=== PATIENT | female | born 1940 | race African-American/Black ===

== ENCOUNTER → 2016-11-21 | Outpatient (CLI) | payer MEDICARE, OTHER ==
[~2016-11-21] MED LIST: BENAPOW2 XX; ESTR.3 PO; PROV2.5T OR; SYNT25TA OR
[2016-11-21 11:42] LABS: AUTOMATED NEUTROPHIL # 2.9 TH/MM3 (1.8-7.7); BASOPHIL % 0.7 % (0.0-2.0); EOSINOPHIL # 0.3 TH/MM3 (0-0.4); EOSINOPHIL % 4.7 % (0.0-4.0); HEMATOCRIT 38.9 % (35.0-46.0); HEMO FLAGS DIFF FINAL; LYMPH % 36.8 % (9.0-44.0); LYMPHOCYTE # 2.1 TH/MM3 (1.0-4.8); MEAN CELL VOLUME 88.2 FL (80.0-100.0); MEAN CORPUSCULAR HEMOGLOBIN 29.6 PG (27.0-34.0); MEAN CORPUSCULAR HGB CONC 33.6 % (32.0-36.0); MONO % 6.7 % (0.0-8.0); NEUT % 51.1 % (16.0-70.0); PLATELET COUNT 100 TH/MM3 (150-450); RED BLOOD COUNT 4.41 MIL/MM3 (4.00-5.30); RED CELL DISTRIBUTION WIDTH 14.2 % (11.6-17.2); WHITE BLOOD COUNT 5.7 TH/MM3 (4.0-11.0)
[2016-11-21 11:59] LABS: ALKALINE PHOSPHATASE 38 U/L (45-117); ALT (GPT) 16 U/L (10-53); ANION GAP 8 MEQ/L (5-15); AST (GOT) 17 U/L (15-37); BICARBONATE 26.6 MEQ/L (21.0-32.0); BLOOD UREA NITROGEN 16 MG/DL (7-18); CHLORIDE 107 MEQ/L (98-107); FREE T4 1.25 NG/DL (0.76-1.46); GLOMERULAR FILTRATION RATE 78 ML/MIN (>89); GLUCOSE,FASTING 88 MG/DL (74-99); HDL CHOLESTEROL 95.1 MG/DL (40.0-60.0); INDIRECT BILIRUBIN 0.6 MG/DL (0.0-0.8); LDL CHOLESTEROL 101 MG/DL (0-99); POTASSIUM 4.4 MEQ/L (3.5-5.1); SODIUM (NA) 142 MEQ/L (136-145); TOTAL BILIRUBIN ADULT 0.8 MG/DL (0.2-1.0)
[2016-11-21 16:00] LABS: HEMOGLOBIN A1a 1.1 %; HEMOGLOBIN A1b 0.8 %; HEMOGLOBIN Ao 85.8 %; HEMOGLOBIN F 0.8 %; HEMOGLOBIN LA1C 1.8 %; HEMOGLOBIN P3 3.7 %
== END ==
LOC: CLAB 11:09
PROVIDERS: ATTEND Internal Medicine Cardiovascular Disease
DX: E78.2 Mixed hyperlipidemia (principal); I65.23 Occlusion and stenosis of bilateral carotid arteries; I36.2 Nonrheumatic tricuspid (valve) stenosis with insufficiency; R73.01 Impaired fasting glucose; Z79.899 Other long term (current) drug therapy
CPT/HCPCS: 36415; 80048; 80061; 80076; 83036; 84439; 84443; 85025

== ENCOUNTER 2017-02-27 09:07 | Emergency (ER) | payer MEDICARE, OTHER ==
[2017-02-27 09:11] VITALS: BP 177/77; PULSE 82; RESP 15; TEMP 98.1; O2SAT 99
[2017-02-27] MEDS ORDERED: ESTR.3 PO (09:36)
[2017-02-27] MEDS ORDERED: LEVO.05 PO (09:36)
[2017-02-27] MEDS ORDERED: MEDR2.5 PO (09:36)
[2017-02-27] MEDS ORDERED: TELM20 PO (09:36)
[2017-02-27] MEDS ORDERED: diphenhydrAMINE HCL 25 MG CAP PO ONE (10:30)
[2017-02-27] MEDS ORDERED: predniSONE 20 MG TAB PO ONE (10:30)
[2017-02-27] MEDS ORDERED: PRED-503 PO (10:33)
[2017-02-27] MEDS ORDERED: DIPH25CA PO (10:33)
--- NOTE | 2017-02-27 10:33 | PD ---
HPI Chief Complaint: Bite or Sting Time Seen by Provider: 10:12 Travel History International Travel<30 days: No Contact w/Intl Traveler<30days: No Traveled to known affect area: No History of Present Illness HPI The patient is a 76-year-old [place] female who presents emergency department for rash to the right forearm. The patient states she developed a rash of her forearms several months ago while she was cleaning property up and the pain handle of [place]. The patient states the rash was somewhat pruritic, lasted for 2 weeks and then resolved. The patient then developed a rash and/or bite to the posterior aspect of the right elbow which last for several days, was somewhat pruritic and then healed. She now complains of redness and swelling over the proximal right forearm which is warm to the touch and pruritic. She denies any ration of pain proximal to the right elbow. She does note she recently had a similar rash to left upper extremity, is unsure if she' s being bit by insects or is allergic to some chemical. She denies any current systemic symptoms and has an appointment next Sunday with a senior bioinformatics specialist because her practitioners out of town. PFSH Past Medical History Blood Disorders: No Cardiovascular Problems: No Diminished Hearing: No Gastrointestinal Disorders: Yes (HX GERD,ESOPHAGEAL STRICTURES, COLON POLYPS) GERD: Yes Musculoskeletal: No Neurologic: No Psychiatric: No Respiratory: Yes (SARCODOSIS) ?: Not Past Surgical History Thoracic Surgery: Yes ("lung check for sarcoidosis") Other Surgery: Yes (polyp removal, urethral dilation, ) Social History Alcohol Use: Yes (rare) Tobacco Use: No Substance Use: No Allergies-Medications (Allergen,Severity, Reaction): Coded Allergies: Valium (Verified Allergy, Severe, 02/27/17) Uncoded Allergies: innovar (Adverse Reaction, Severe, 02/27/17) hyper Reported Meds & Prescriptions Reported Meds & Active Scripts Active Reported Micardis (Telmisartan) 20 Mg Tab 20 Mg PO DAILY Synthroid (Levothyroxine Sodium) 50 Mcg Tab 50 Mcg PO DAILY Premarin (Estrogens Conjugated) 0.3 Mg Tab 0.3 Mg PO DAILY Provera (Medroxyprogesterone Acetate) 2.5 Mg Tab 2.5 Mg PO DAILY Start day 21 Review of Systems General / Constitutional: No: Fever, Chills Musculoskeletal: No: Myalgias, Arthralgias Skin: Positive Rash, Positive Itching Neurologic: No: Paresthesia, Sensory Disturbance Physical Exam Narrative GENERAL: Awake, alert, very pleasant 76-year-old female who appears her stated age and is in no acute respiratory distress. SKIN: Focused skin assessment warm/dry. The patient has area of erythema on the proximal right forearm with a central area that is slightly clear, 0.5 cm in diameter, and may be a focal point of injection from insect bite. The surrounding erythema has no underlying fluctuance and blanches. There is no erythema proximal to the right any anterior Q fossa no tenderness of the medial aspect of the right humerus and no right axillary lymphadenopathy noted. HEAD: Atraumatic. Normocephalic. EYES: Pupils equal and round. No scleral icterus. No injection or drainage. ENT: No nasal bleeding or discharge. Mucous membranes pink and moist. NECK: Trachea midline. No JVD. MUSCULOSKELETAL: No obvious deformities. No clubbing. No cyanosis. No edema. NEUROLOGICAL: Awake and alert. No obvious cranial nerve deficits. Motor grossly within normal limits. Normal speech. PSYCHIATRIC: Appropriate mood and affect; insight and judgment normal. Data Data Last Documented VS Vital Signs Date Time Temp Pulse Resp B/P Pulse Ox O2 Delivery O2 Flow Rate FiO2 02/27/17 09:11 98.1 82 15 177/77 99 Orders Prednisone (Deltasone) (02/27/17 10:30) Diphenhydramine (Benadryl) (02/27/17 10:30) MDM Medical Decision Making Medical Screen Exam Complete: Yes Emergency Medical Condition: Yes Medical Record Reviewed: Yes Differential Diagnosis Differential diagnosis includes allergic reaction secondary to insect bite, abscess, cellulitis, autoimmune disorder, contact dermatitis. Narrative Course The patient's physical examination reveals an area of erythema with what appears to be a central focal point of injection with a clear blister the medial aspect with some surrounding erythema that blanches. There is no underlying abscess and no tenderness along the medial aspect the right humerus to suggest lymphadenitis last lymphangitis. It appears be allergic reaction, possibly secondary to insect. Therefore, patient will be placed on a short posterior prednisone and Benadryl. She is advised to follow-up with her senior bioinformatics specialist as previously directed and return if symptoms worsen or progress. Diagnosis Primary Impression: Allergic reaction Qualified Code: T78.40XA - Allergic reaction, initial encounter Patient Instructions: General Instructions Additional Instructions: Medications as directed. Follow-up with the senior bioinformatics specialist as previously directed. Cool compresses to the affected area. Return for fevers or progressing symptoms. Med/Other Pt SpecificInfo: Prescription(s) given Scripts Diphenhydramine 25 Mg Cap25 Mg PO Q6H PRN (ALLERGIES) #20 CAP Ref 0 Prov:Luke Snow MD 02/27/17 Prednisone (Deltasone)20 Mg Tab40 Mg PO DAILY 4 Days Ref 0 Prov:Luke Snow MD 02/27/17 Disposition: 01 DISCHARGE HOME Condition: Stable Luke Snow MD Feb 27, 2017 10:33
== END 2017-02-27 10:49 | disposition home or self-care (01) ==
LOC: NEPD 09:35
DX: T78.40XA Allergy, unspecified, initial encounter (principal)
CPT/HCPCS: 99284; J7512

== ENCOUNTER → 2017-07-10 | Outpatient (CLI) | payer MEDICARE, OTHER ==
[~2017-07-10] MED LIST changes: -BENAPOW2 XX; +DIPH25CA PO; +LEVO.05 PO; +MEDR2.5 PO; +PRED-503 PO; -PROV2.5T OR; -SYNT25TA OR; +TELM20 PO
[2017-07-10 10:49] LABS: HDL CHOLESTEROL 98.6 MG/DL (40.0-60.0); INDIRECT BILIRUBIN 0.5 MG/DL (0.0-0.8); TOTAL BILIRUBIN ADULT 0.7 MG/DL (0.2-1.0)
== END ==
LOC: CLAB 09:58
PROVIDERS: ATTEND Internal Medicine Cardiovascular Disease
DX: R00.2 Palpitations (principal); E78.2 Mixed hyperlipidemia; Z79.899 Other long term (current) drug therapy
CPT/HCPCS: 36415; 80061; 80076; 82550

== ENCOUNTER → 2017-07-20 | Outpatient (CLI) | payer MEDICARE, OTHER ==
[2017-07-20 11:32] LABS: HEMATOCRIT 39.2 % (35.0-46.0); MEAN CELL VOLUME 89.5 FL (80.0-100.0); MEAN CORPUSCULAR HEMOGLOBIN 29.7 PG (27.0-34.0); MEAN CORPUSCULAR HGB CONC 33.2 % (32.0-36.0); PLATELET COUNT 113 TH/MM3 (150-450); RED BLOOD COUNT 4.38 MIL/MM3 (4.00-5.30); RED CELL DISTRIBUTION WIDTH 14.1 % (11.6-17.2); REVIEW FLAG FINAL; WHITE BLOOD COUNT 5.4 TH/MM3 (4.0-11.0)
[2017-07-20 12:02] LABS: WESTERGREN SEDIMENTATION RATE 4 mm/hr (0-30)
[2017-07-20 12:32] LABS: ALT (GPT) 15 U/L (10-53); ANION GAP 6 MEQ/L (5-15); AST (GOT) 15 U/L (15-37); BLOOD UREA NITROGEN 16 MG/DL (7-18); CHLORIDE 107 MEQ/L (98-107); GLOMERULAR FILTRATION RATE 86 ML/MIN (>89); GLUCOSE,FASTING 81 MG/DL (74-99); POTASSIUM 3.9 MEQ/L (3.5-5.1); SODIUM (NA) 140 MEQ/L (136-145)
[2017-07-20 12:34] LABS: ALKALINE PHOSPHATASE 43 U/L (45-117); TOTAL BILIRUBIN ADULT 0.7 MG/DL (0.2-1.0)
== END ==
LOC: CLAB 10:58
PROVIDERS: ATTEND Internal Medicine Sleep Medicine
DX: D64.9 Anemia, unspecified (principal)
CPT/HCPCS: 36415; 80053; 82164; 85027; 85652

== ENCOUNTER → 2017-10-26 | Outpatient (CLI) | payer MEDICARE, OTHER ==
[2017-10-26 11:12] LABS: AUTOMATED NEUTROPHIL # 2.9 TH/MM3 (1.8-7.7); BASOPHIL % 0.7 % (0.0-2.0); EOSINOPHIL # 0.3 TH/MM3 (0-0.4); EOSINOPHIL % 6.4 % (0.0-4.0); HEMATOCRIT 40.1 % (35.0-46.0); HEMOGLOBIN 13.4 GM/DL (11.6-15.3); LYMPH % 30.7 % (9.0-44.0); LYMPHOCYTE # 1.6 TH/MM3 (1.0-4.8); MEAN CELL VOLUME 89.1 FL (80.0-100.0); MEAN CORPUSCULAR HEMOGLOBIN 29.7 PG (27.0-34.0); MEAN CORPUSCULAR HGB CONC 33.4 % (32.0-36.0); MEAN PLATELET VOLUME 9.9 FL (7.0-11.0); MONO % 6.9 % (0.0-8.0); MONOCYTE # 0.4 TH/MM3 (0-0.9); NEUT % 55.3 % (16.0-70.0); PLATELET COUNT 119 TH/MM3 (150-450); RED CELL DISTRIBUTION WIDTH 14.1 % (11.6-17.2); WHITE BLOOD COUNT 5.3 TH/MM3 (4.0-11.0)
[2017-10-26 11:24] LABS: ALBUMIN 3.7 GM/DL (3.4-5.0); AST (GOT) 15 U/L (15-37); BICARBONATE 26.2 MEQ/L (21.0-32.0); BLOOD UREA NITROGEN 15 MG/DL (7-18); CALCIUM 9.4 MG/DL (8.5-10.1); CHLORIDE 107 MEQ/L (98-107); CREATININE 0.98 MG/DL (0.50-1.00); GLOMERULAR FILTRATION RATE 67 ML/MIN (>89); GLUCOSE,FASTING 86 MG/DL (74-99); SODIUM (NA) 140 MEQ/L (136-145)
[2017-10-26 11:25] LABS: CHOLESTEROL 257 MG/DL (120-200); TRIGLYCERIDES 81 MG/DL (42-150)
[2017-10-26 11:34] LABS: ALKALINE PHOSPHATASE 46 U/L (45-117); ALT (GPT) 13 U/L (10-53); CHOLESTEROL/ HDL RATIO 2.76 RATIO; FREE T4 1.23 NG/DL (0.76-1.46); HDL CHOLESTEROL 93.1 MG/DL (40.0-60.0); LDL CHOLESTEROL 148 MG/DL (0-99); TOTAL BILIRUBIN ADULT 0.7 MG/DL (0.2-1.0); TOTAL PROTEIN 6.9 GM/DL (6.4-8.2)
== END ==
LOC: CLAB 10:19
PROVIDERS: ATTEND Family Medicine
DX: I10 Essential (primary) hypertension (principal); E03.9 Hypothyroidism, unspecified; E78.2 Mixed hyperlipidemia; K21.0 Gastro-esophageal reflux disease with esophagitis; D86.9 Sarcoidosis, unspecified
CPT/HCPCS: 36415; 80053; 80061; 84439; 84443; 85025

== ENCOUNTER → 2017-12-04 | Outpatient (CLI) | payer MEDICARE, OTHER ==
[2017-12-04 12:42] LABS: CHOLESTEROL/ HDL RATIO 2.65 RATIO; HDL CHOLESTEROL 85.8 MG/DL (40.0-60.0)
== END ==
LOC: CLAB 11:41
PROVIDERS: ATTEND Family Medicine
DX: E78.2 Mixed hyperlipidemia (principal)
CPT/HCPCS: 36415; 80061

== ENCOUNTER → 2018-01-09 | Outpatient (CLI) | payer MEDICARE, OTHER ==
[2018-01-09 08:15] LABS: AUTOMATED NEUTROPHIL # 2.1 TH/MM3 (1.8-7.7); BASOPHIL % 0.6 % (0.0-2.0); EOSINOPHIL # 0.3 TH/MM3 (0-0.4); EOSINOPHIL % 7.4 % (0.0-4.0); HEMATOCRIT 39.4 % (35.0-46.0); HEMOGLOBIN 12.8 GM/DL (11.6-15.3); LYMPH % 37.5 % (9.0-44.0); LYMPHOCYTE # 1.7 TH/MM3 (1.0-4.8); MEAN CELL VOLUME 89.8 FL (80.0-100.0); MEAN CORPUSCULAR HEMOGLOBIN 29.3 PG (27.0-34.0); MEAN CORPUSCULAR HGB CONC 32.6 % (32.0-36.0); MEAN PLATELET VOLUME 10.4 FL (7.0-11.0); MONO % 7.3 % (0.0-8.0); MONOCYTE # 0.3 TH/MM3 (0-0.9); NEUT % 47.2 % (16.0-70.0); PLATELET COUNT 105 TH/MM3 (150-450); RED BLOOD COUNT 4.39 MIL/MM3 (4.00-5.30); RED CELL DISTRIBUTION WIDTH 14.1 % (11.6-17.2); WHITE BLOOD COUNT 4.6 TH/MM3 (4.0-11.0)
[2018-01-09 08:43] LABS: ALBUMIN 3.4 GM/DL (3.4-5.0); ALT (GPT) 14 U/L (10-53); AST (GOT) 17 U/L (15-37); BICARBONATE 26.8 MEQ/L (21.0-32.0); BLOOD UREA NITROGEN 15 MG/DL (7-18); CALCIUM 9.1 MG/DL (8.5-10.1); CHLORIDE 110 MEQ/L (98-107); CHOLESTEROL 244 MG/DL (120-200); CREATININE 0.87 MG/DL (0.50-1.00); DIRECT BILIRUBIN ADULT 0.2 MG/DL (0.0-0.2); GLOMERULAR FILTRATION RATE 77 ML/MIN (>89); GLUCOSE,FASTING 87 MG/DL (74-99); SODIUM (NA) 144 MEQ/L (136-145)
[2018-01-09 08:51] LABS: ALKALINE PHOSPHATASE 41 U/L (45-117); CHOLESTEROL/ HDL RATIO 3.01 RATIO; FREE T4 1.09 NG/DL (0.76-1.46); HDL CHOLESTEROL 80.8 MG/DL (40.0-60.0); INDIRECT BILIRUBIN 0.5 MG/DL (0.0-0.8); LDL CHOLESTEROL 141 MG/DL (0-99); TOTAL BILIRUBIN ADULT 0.7 MG/DL (0.2-1.0); TOTAL PROTEIN 6.6 GM/DL (6.4-8.2); TRIGLYCERIDES 110 MG/DL (42-150)
[2018-01-09 17:01] LABS: HEMOGLOBIN A1C 5.5 % (4.3-6.0)
== END ==
LOC: CLAB 07:44
PROVIDERS: ATTEND Internal Medicine Cardiovascular Disease
DX: I65.23 Occlusion and stenosis of bilateral carotid arteries (principal); E78.2 Mixed hyperlipidemia; R06.02 Shortness of breath; R73.01 Impaired fasting glucose; Z79.899 Other long term (current) drug therapy
CPT/HCPCS: 36415; 80048; 80061; 80076; 83036; 84439; 84443; 84480; 85025